=== PATIENT | female | born 1945 | race Caucasian/White ===

== ENCOUNTER 2018-01-11 04:14 | Emergency (ER) | payer OTHER ==
[2018-01-11 04:18] VITALS: BP 125/82
--- NOTE | 2018-01-11 04:21 | EDPHY ---
H & P Stated Complaint: burning and pain with urination right hip replacement on wed Time Seen by Provider: 01/11/18 04:21 HPI/ROS: HPI CHIEF COMPLAINT: Dysuria, blood in urine HISTORY OF PRESENT ILLNESS: Very pleasant 72-year-old female, presents emergency room with dysuria, and blood in her urine this started this morning. No fever, no back pain, no significant abdominal pain. Denies any nausea vomiting. She recently had a right hip replacement. She is concerned she may have a urinary tract infection. Patient denies flank pain or fever. Denies feeling ill. Past Medical History: No significant medical history per the patient. Past Surgical History: Recent Right hip surgery. Social History: Denies drugs alcohol tobacco. Family History: Noncontributory ROS REVIEW OF SYSTEMS: 10 Systems were reviewed and negative with the exception of the elements mentioned in the history of present illness. Exam Constitutional triage nursing summary reviewed, vital signs reviewed, awake/ alert. Eyes normal conjunctivae and sclera, EOMI, PERRLA. HENT normal inspection, atraumatic, moist mucus membranes, no epistaxis, neck supple/ no meningismus, no raccoon eyes. Respiratory clear to auscultation bilaterally, normal breath sounds, no respiratory distress, no wheezing. Cardiovascular rate normal, regular rhythm, no murmur, no edema, distal pulses normal. Gastrointestinal nontender abdomen, soft, non-tender, no rebound, no guarding, normal bowel sounds, no distension, no pulsatile mass. Genitourinary no CVA tenderness. Musculoskeletal no midline vertebral tenderness, full range of motion, no calf swelling, no tenderness of extremities, no meningismus, good pulses, neurovascularly intact. Skin pink, warm, & dry, no rash, skin atraumatic. Neurologic awake, alert and oriented x 3, AAOx3, moves all 4 extremities equally, motor intact, sensory intact, CN II-XII intact, normal cerebellar, normal vision, normal speech. Psychiatric normal mood/affect. Heme/Lymph/Immune no lymphadenopathy. Differential Diagnosis: Includes but is not limited to in a particular order cystitis, UTI, pyelonephritis Medical Decision Making: Plan for this patient check UA. Will send urine culture if indicated. Most likely start on Keflex and peridium 1st dose given in emergency room. Prescription for rest. This patient appears well nontoxic I do not feel that she needs blood work her IV medications or IV establishment this time. Vital signs are stable. Afebrile. Symptoms started approximately 45 min ago. Dysuria and blood in her urine. Re-evaluation: Urinalysis reviewed. This shows UTI. Cystitis. Whites and reds. Urine cultures been sent. 1st dose of Keflex and peridium given in emergency room. Keflex take-home pack. Additionally prescription for Keflex and peridium. Patient understands drink lots of fluids stay well-hydrated. Return emergency room if feeling ill, fever, vomiting, not doing well. Source: Patient - Personal History Current Tetanus/Diphtheria Vaccine: No Current Tetanus Diphtheria and Acellular Pertussis (TDAP): No - Medical/Surgical History Hx Asthma: No Hx Chronic Respiratory Disease: No Hx Diabetes: No Hx Cardiac Disease: No Hx Renal Disease: No Hx Cirrhosis: No Hx Alcoholism: No Hx HIV/AIDS: No Hx Splenectomy or Spleen Trauma: No Other PMH: right hip replacement - Social History Smoking Status: Never smoked Constitutional: Initial Vital Signs Temperature (C) 36.5 C 01/11/18 04:16 Heart Rate 103 H 01/11/18 04:16 Respiratory Rate 16 01/11/18 04:16 Blood Pressure 125/82 H 01/11/18 04:16 O2 Sat (%) 97 01/11/18 04:16 O2 Delivery Mode Room Air Allergies/Adverse Reactions: No Known Allergies Allergy (Unverified 01/11/18 04:18) Home Medications: Medication Instructions Recorded Aspirin 81mg (*) 01/11/18 Cephalexin [Keflex] 500 mg PO Q6H #28 cap 01/11/18 Meloxicam 01/11/18 Oxycodone HCl 01/11/18 Phenazopyridine HCl [Pyridium] 200 mg PO TID #15 tab 01/11/18 TYLENOL #3 01/11/18 Medical Decision Making - Data Points Laboratory Results: 01/11/18 04:30 Urine Color RED Urine Appearance MODERATELY TURBID Urine pH 8.0 H (5.0-7.5) Ur Specific [place] 1.012 (1.002-1.030) Urine Protein 2+ H (NEGATIVE) Urine Ketones NEGATIVE (NEGATIVE) Urine Blood 3+ H (NEGATIVE) Urine Nitrate NEGATIVE (NEGATIVE) Urine Bilirubin NEGATIVE (NEGATIVE) Urine Urobilinogen NEGATIVE EU EU (0.2-1.0) Ur Leukocyte Esterase 2+ H (NEGATIVE) Urine RBC 50-182 /hpf H /hpf (0-3) Urine WBC 50-182 /hpf H /hpf (0-3) Ur Epithelial Cells TRACE /lpf /lpf (NONE-1+) Urine Bacteria 4+ /hpf H /hpf (NONE SEEN) Urine Glucose NEGATIVE (NEGATIVE) Medications Given: Discontinued Medications Oxycodone/Acetaminophen (Percocet 5/325) 2 tab PO EDNOW ONE Stop: 01/11/18 04:45 Last Admin: 01/11/18 04:44 Dose: 2 tab Departure - Departure Disposition: Home, Routine, Self-Care Clinical Impression: UTI (urinary tract infection) Qualifiers: Urinary tract infection type: acute cystitis Hematuria presence: with hematuria Qualified Code(s): N30.01 - Acute cystitis with hematuria Condition: Good Instructions: Urinary Tract Infection in Women (ED) Additional Instructions: 1. Drink lots of fluids stay well-hydrated 2. If you have worsening symptoms including fever, vomiting, back pain, worsening symptoms return emergency room 3. Additionally follow up with her primary care doctor 4. Antibiotics as prescribed Referrals: Patient,NotPresent [Unknown] - As per Instructions Prescriptions: Cephalexin [Keflex] 500 mg PO Q6H #28 cap Phenazopyridine HCl [Pyridium] 200 mg PO TID #15 tab
[2018-01-11] MEDS ORDERED: OXYCODONE/APAP 5/325 TAB ONE (04:38)
[2018-01-11] MEDS ORDERED: OXYCODONE/APAP 5/325 TAB PO ONE (04:44)
[2018-01-11] MEDS ORDERED: PHENAZOPYRIDINE HCL 200 MG TAB PO ONE (04:56)
[2018-01-11] MEDS ORDERED: CEPHALEXIN 500 MG CAP PO ONE (04:56)
[2018-01-11] MEDS ORDERED: CEPHALEXIN 500MG PREPACK#4 BTL TAKEHOME ONE (04:56)
== END 2018-01-11 05:13 | disposition home or self-care (01) ==
DX: N30.01 Acute cystitis with hematuria (principal); Z96.641 Presence of right artificial hip joint